=== PATIENT | female | born 1990 | race Caucasian/White ===

== ENCOUNTER 2017-01-05 21:57 | Emergency (ER) | payer OTHER ==
--- NOTE | 2017-01-05 21:58 | PDOC ---
History of Present Illness - General Chief Complaint: Migraine Headache Stated Complaint: MIGRAINE Time Seen by Provider: 01/05/17 21:58 - History of Present Illness Initial Comments: 01/05/17 22:15 This 27-year-old woman with a history of cerebral palsy, migraines, frequent UTIs, anxiety/depression presents with a one-day history of migraine headache. Patient states that headache again on the right side then became bilateral and accompanied by nausea. This pattern is consistent with her more serious migraine headaches. She became nauseated early in the course of the headache and did not take any analgesics/anti-inflammatory medications. She normally takes [id number] ibuprofen/naproxen or "doubles up" on her daily magnesium supplementation. She vomited after taking extra magnesium earlier today. Only other medication taken today was Pepto-Bismol for her nausea. Patient last vomited at approximately 8 PM (emesis was Pepto-Bismol); no coffee ground or blood noted in the emesis. Patient states that she has needed to be treated with IV pain medication/fluids in the past when she has had complicated migraines No recent head trauma/loss of consciousness. She has not had any fever/chills or neck pain. Patient states that her menstrual period is due tomorrow. Patient also parenthetically notes that her left ear is somewhat itchy and painful for the last few days. No discharge or bleeding noted. Patient states that she does use earbuds and uses Q-tips to clean clean her ears. No previous history of otitis externa Past History - Past Medical History Allergies/Adverse Reactions: Allergies Allergy/AdvReac Type Severity Reaction Status Date / Time No Known Allergies Allergy Verified 08/27/15 14:05 Home Medications: Ambulatory Orders Escitalopram Oxalate [Lexapro -] 20 mg PO DAILY 01/29/15 Levothyroxine [Synthroid -] 50 mcg PO DAILY 01/29/15 Levocetirizine Dihydrochloride [Xyzal] 5 mg PO DAILY 01/05/17 Magnesium 01/05/17 Naproxen Sodium 550 mg PO BID PRN #20 tablet 01/05/17 Neomycin/Polymyxn/Hc [Cortisporin Otic Suspenstion -] 5 drop Q4HWA #1 bottle 01/05/17 Vitamin D - 01/05/17 Anemia: No Asthma: No Cancer: No Cardiac Disorders: No CVA: No COPD: No CHF: No Dementia: No Diabetes: No GI Disorders: No Disorders: Yes (uti) HTN: No Hypercholesterolemia: No Liver Disease: No Psychiatric Problems: Yes (DEPRESSION,ANXIETY) Suicide Attempt (Hx): No Seizures: No Thyroid Disease: Yes (hypo) - Surgical History Abdominal Surgery: No Appendectomy: No Cardiac Surgery: No Cholecystectomy: No Lung Surgery: No Neurologic Surgery: Yes (rhizotomy) Orthopedic Surgery: No - Psycho/Social/Smoking Cessation Hx Anxiety: Yes Suicidal Ideation: No Smoking Status: No Smoking History: Never smoked Have you smoked in the past 12 months: No Number of Cigarettes Smoked Daily: 0 Hx Alcohol Use: No Drug/Substance Use Hx: No Substance Use Type: None Hx Substance Use Treatment: No Review of Systems - Review of Systems Able to Perform ROS?: Yes Comments:: 12 point review of systems is negative except for what is noted in the history of present illness *Physical Exam - Physical Exam Comments: GENERAL:Adult female in no acute distress, alert and oriented 3 HEAD: Normal with no signs of trauma. EYES: PERRLA, EOMI, sclera anicteric, conjunctiva clear. ENT: Right ear normal, left ear erythematous , moderately edematous canal , normal TM Remainder of the ENT exam is normal NECK: Normal range of motion, supple without lymphadenopathy, JVD, or masses. LUNGS: Breath sounds equal, clear to auscultation bilaterally. No wheezes, and no crackles. HEART:Regular rate and rhythm, normal S1 and S2 without murmur, rub or gallop. ABDOMEN:.normal bowel sounds No guarding,tenderness or rebound.No masses No distention. EXTREMITIES: Normal range of motion, no edema. No clubbing or cyanosis. No erythema, or tenderness. NEUROLOGICAL: Cranial nerves II through XII grossly intact. Normal speech no focal neurologic deficits MUSCULOSKELETAL: Back non-tender to palpation, no CVA tenderness SKIN: Warm, Dry, normal turgor, no rashes or lesions noted. Medical Decision Making - Medical Decision Making 01/05/17 23:56 Patient feels significantly better after Toradol 30 mg IV, approximately 250 mL of normal saline IV and 4 mg Zofran IV. The patient is concerned about having a recurrent headache tomorrow. Since she normally takes nonsteroidal anti-inflammatory medications for her headaches, we will prescribe naproxen 550 mg to be taken twice a day with food as needed for headache. Also, Decadron 10 mg IV will be administered as prophylaxis for rebound headache. The patient has not seen her neurologist (Dr. Talbert) in quite a while. She should follow-up with him within the next week. She should return to the ER if she has persistent severe headache or develops vomiting. A prescription for Cortisporin otic suspension to be used every 4 hours while awake for the next week 5 drops in left ear), was sent to the patient's pharmacy. She should follow-up with Dr. Tripathi (ENT group) if she has persistent discomfort /itching in the ear. *DC/Admit/Observation/Transfer Diagnosis at time of Disposition: Migraine Qualifiers: Migraine type: chronic without aura Status migrainosus presence: without status migrainosus Intractability: not intractable Qualified Code(s): G43.709 - Chronic migraine without aura, not intractable, without status migrainosus Otitis externa Qualifiers: Otitis externa type: unspecified type Chronicity: acute Laterality: left Qualified Code(s): H60.502 - Unspecified acute noninfective otitis externa, left ear - Discharge Dispostion Disposition: HOME Condition at time of disposition: Stable - Prescriptions Prescriptions: Neomycin/Polymyxn/Hc [Cortisporin Otic Suspenstion -] 5 drop Q4HWA #1 bottle Naproxen Sodium 550 mg PO BID PRN #20 tablet PRN Reason: Headache - Referrals Referrals: Arnaldo Ramirez MD [Primary Care Provider] - Andrew Tripathi MD [Staff Physician] - 1 week - Patient Instructions Additional Instructions: Naproxen 550 mg twice a day as needed for headache (take with food) Continue other medications as prescribed Cortisporin otic suspension in left ear (5 drops every 4 hours while awake for one week) Follow-up with ENT (Dr. Tripathi group) if you have continued ear discomfort Follow-up with your neurologist within the next 5-7 days Return to ER if you have severe headache or persistent vomiting
[2017-01-05 22:04] VITALS: BP 127/54; PULSE 84; TEMP 97.7; BMI 38.3
[2017-01-05] MEDS ORDERED: ONDANSETRON 4 MG/2 ML VIAL IVPUSH ONE (22:14)
[2017-01-05] MEDS ORDERED: SODIUM CHLORIDE 1,000 ML IV STA (22:14)
[2017-01-05] MEDS ORDERED: KETOROLAC TROMETHAMINE 30 MG/1 ML VIAL IVPUSH ONE (22:14)
[2017-01-05] MEDS ORDERED: KETOROLAC TROMETHAMINE 30 MG/1 ML VIAL ONE (22:19)
[2017-01-05] MEDS ORDERED: ONDANSETRON 4 MG/2 ML VIAL ONE (22:19)
[2017-01-05] MEDS ORDERED: DEXAMETHASONE SOD PHOSPHATE 10 MG/1 ML VIAL IVPB ONE (23:22)
[2017-01-05] MEDS ORDERED: DEXAMETHASONE SOD PHOSPHATE 10 MG/1 ML VIAL ONE (23:24)
== END 2017-01-05 23:56 | disposition home or self-care (01) ==
LOC: FER 21:57
PROC: 3E033GC Introduction of Other Therapeutic Substance into Peripheral Vein, Percutaneous Approach (ICD-10-PCS; principal; 2017-01-05)
PROC: 3E0333Z Introduction of Anti-inflammatory into Peripheral Vein, Percutaneous Approach (ICD-10-PCS; 2017-01-05)
PROC: 3E033GC Introduction of Other Therapeutic Substance into Peripheral Vein, Percutaneous Approach (ICD-10-PCS; 2017-01-05)
PROC: 3E0333Z Introduction of Anti-inflammatory into Peripheral Vein, Percutaneous Approach (ICD-10-PCS; 2017-01-05)
DX: H60.502 Unspecified acute noninfective otitis externa, left ear (principal); G43.709 Chronic migraine without aura, not intractable, without status migrainosus; F41.8 Other specified anxiety disorders; E03.9 Hypothyroidism, unspecified
CPT/HCPCS: 99281-25

== ENCOUNTER 2018-04-17 19:19 | Emergency (ER) | payer OTHER ==
[2018-04-17 19:25] VITALS: BP 124/84; PULSE 105; TEMP 98.3; BMI 38.3
--- NOTE | 2018-04-17 19:29 | PDOC ---
History of Present Illness - History of Present Illness Initial Comments: 04/17/18 19:42 The patient is a 28 year old female, with a significant past medical history of migraine headaches, hypothyroidism, depression/anxiety, and occasional recurrent UTIs, who presents to the emergency department with a migraine headache for 3 days. She states she took her candesartan and triptan without relief of the migraine. She states the headache travels from back to front and from left to right. She reports associated photophobia and nausea. She states she has experienced migraines like this but they do not come as frequent as her left sever headaches. The patient denies chest pain, shortness of breath, and dizziness. The patient denies fever, chills, vomit, diarrhea and constipation. The patient denies dysuria, frequency, urgency and hematuria. PAST MEDICAL HISTORY: migraine headaches, hypothyroidism, depression/anxiety, and occasional recurrent UTIs, PAST SURGICAL HISTORY: no significant history FAMILY HISTORY: no pertinent history SOCIAL HISTORY: Pt lives with family and is employed. MEDICATIONS: reviewed ALLERGIES: As per nursing notes Adult ROS General: No fevers or chills, no weakness, no weight loss HEENT: No change in vision. No sore throat,. No ear pain CardioVascular: No chest pain or shortness of breath Respiratory:No cough, or wheezing. Gastrointestinal: (+) nausea, no vomiting, diarrhea or constipation, No rectal bleeding Genitourinary: No dysuria, hematuria, or frequency Musculoskeletal: No joint or muscle pain or swelling Neurologic: (+) headache, photophobia. No vertigo, dizziness or loss of consciousness Psychiatric: nor depression Skin: No rashes or easy bruising Endocrine: no increased thirst or abnormal weight change Allergic: no skin or latex allergy All other systems reviewed and normal Basic PE GENERAL: The patient is awake, alert, and fully oriented, in no acute distress. HEAD: Normal with no signs of trauma. EYES: Pupils equal, round and reactive to light, extraocular movements intact, sclera anicteric, conjunctiva clear. EXTREMITIES: Normal range of motion, no edema. NEUROLOGICAL: Normal speech, normal gait. PSYCH: Normal mood, normal affect. SKIN: Warm, Dry, normal turgor, no rashes or lesions noted. <Ernestina Arndt - Last Filed: 04/17/18 19:42> - General History Source: Patient Exam Limitations: No Limitations - History of Present Illness Initial Comments: 04/17/18 19:30 A portion of this note was documented by scribe services under my direction. I have reviewed the details of the note, within reason, and agree with the documentation. The case summary and management plan written by me. This is a 28 year old female with history of migraines. Pt come in with a typical migraine. Pt took her usual medications without relief. Pt had a normal exam. Pt felt much better an hour after tordol and reglan and asked to go home. Pt discharged home and told to follow up with her PMD if headache returned. <Von Sim I - Last Filed: 04/17/18 20:38> - General Chief Complaint: Migraine Headache Stated Complaint: MIGRAINE HEADACHE Time Seen by Provider: 04/17/18 19:29 Past History <Ernestina Arndt - Last Filed: 04/17/18 19:42> - Past Medical History Anemia: No Asthma: No Cancer: No Cardiac Disorders: No CVA: No COPD: No CHF: No Dementia: No Diabetes: No GI Disorders: No Disorders: Yes (uti) HTN: No Hypercholesterolemia: No Liver Disease: No Psychiatric Problems: Yes (DEPRESSION,ANXIETY) Seizures: No Thyroid Disease: Yes (hypo) - Surgical History Abdominal Surgery: No Appendectomy: No Cardiac Surgery: No Cholecystectomy: No Lung Surgery: No Neurologic Surgery: Yes (rhizotomy) Orthopedic Surgery: No - Suicide/Smoking/Psychosocial Hx Smoking Status: No Smoking History: Never smoked Have you smoked in the past 12 months: No Number of Cigarettes Smoked Daily: 0 Information on smoking cessation initiated: No Hx Alcohol Use: No Drug/Substance Use Hx: No Substance Use Type: None Hx Substance Use Treatment: No <Von Sim I - Last Filed: 04/17/18 20:38> - Past Medical History Allergies/Adverse Reactions: Allergies Allergy/AdvReac Type Severity Reaction Status Date / Time No Known Allergies Allergy Verified 04/17/18 19:21 Home Medications: Ambulatory Orders Escitalopram Oxalate [Lexapro -] 20 mg PO DAILY 01/29/15 Levothyroxine [Synthroid -] 50 mcg PO DAILY 01/29/15 Levocetirizine Dihydrochloride [Xyzal] 5 mg PO DAILY 01/05/17 Magnesium 01/05/17 Naproxen Sodium 550 mg PO BID PRN #20 tablet 01/05/17 Neomycin/Polymyxn/Hc [Cortisporin Otic Suspenstion -] 5 drop Q4HWA #1 bottle 01/05/17 Vitamin D - 01/05/17 *Physical Exam - Vital Signs Last Vital Signs Temp Pulse Resp BP Pulse Ox 98.3 F 105 H 16 124/84 100 04/17/18 19:21 04/17/18 19:21 04/17/18 19:21 04/17/18 19:21 04/17/18 19:21 <Ernestina Arndt - Last Filed: 04/17/18 19:42> - Vital Signs Last Vital Signs Temp Pulse Resp BP Pulse Ox 98.3 F 105 H 16 124/84 100 04/17/18 19:21 04/17/18 19:21 04/17/18 19:21 04/17/18 19:21 04/17/18 19:21 <Von Sim I - Last Filed: 04/17/18 20:38> *DC/Admit/Observation/Transfer - Attestations Scribe Attestion: 04/17/18 19:53 Documentation prepared by Ernestina Arndt, acting as medical laboratory assistant for Von Sim MD <Ernestina Arndt - Last Filed: 04/17/18 19:42> - Discharge Dispostion Decision to Admit order: No <Von Sim I - Last Filed: 04/17/18 20:38> Diagnosis at time of Disposition: Migraine Qualifiers: Migraine type: unspecified Status migrainosus presence: without status migrainosus Intractability: not intractable Qualified Code(s): G43.909 - Migraine, unspecified, not intractable, without status migrainosus - Discharge Dispostion Disposition: HOME Condition at time of disposition: Stable - Referrals Referrals: Shannon Parker MD [Primary Care Provider] - - Patient Instructions Additional Instructions: Continue all your medications as perscribed. Follow-up with a neurologist if symptoms don't resolve over the completely over the next 48 hours. Return to the emergency department immediately with ANY new, persistent or worsening symptoms. Continue any medications as previously prescribed by your physician. You should follow up with your primary doctor as soon as possible regarding today's emergency department visit. . Please make sure your doctor reviews the results of your emergency evaluation. Thank you for coming to the Emergency Department today for your care. It was a pleasure to see you today. Please note that your evaluation is INCOMPLETE until you follow-up with your doctor. - Post Discharge Activity
[2018-04-17] MEDS ORDERED: MAG HYDROX/AL HYDROX/SIMETH -MYLANTA- ORAL SUSPENSION PO ONE (19:37)
[2018-04-17] MEDS ORDERED: KETOROLAC TROMETHAMINE 60 MG/2 ML VIAL IM ONE (19:37)
[2018-04-17] MEDS ORDERED: METOCLOPRAMIDE HCL INJECTION 10 MG/2 ML VIAL IM ONE (19:37)
[2018-04-17] MEDS ORDERED: KETOROLAC TROMETHAMINE 60 MG/2 ML VIAL ONE (19:45)
[2018-04-17] MEDS ORDERED: MAG HYDROX/AL HYDROX/SIMETH 30 ML UNIT-DOSE CUP ONE (19:45)
== END 2018-04-17 20:42 | disposition home or self-care (01) ==
LOC: FER 19:19
PROC: 3E0233Z Introduction of Anti-inflammatory into Muscle, Percutaneous Approach (ICD-10-PCS; principal; 2018-04-17)
PROC: 3E033GC Introduction of Other Therapeutic Substance into Peripheral Vein, Percutaneous Approach (ICD-10-PCS; 2018-04-17)
DX: G43.909 Migraine, unspecified, not intractable, without status migrainosus (principal); F41.8 Other specified anxiety disorders; E03.9 Hypothyroidism, unspecified
CPT/HCPCS: 96372; 99281-25

== ENCOUNTER 2018-08-31 17:55 | Emergency (ER) | payer OTHER ==
--- NOTE | 2018-08-31 18:13 | PDOC ---
History of Present Illness - General History Source: Patient, Family Exam Limitations: No Limitations - History of Present Illness Initial Comments: 08/31/18 18:42 The patient is a 28-year-old female with a past medical history significant for hx of migraine headaches, keratosis pilaris, hypothyroidism, and Cerebral Palsy presents to the emergency department with a persistent cough. The patient presents with 2 weeks of persistent cough with associated symptoms of headache, back pain, pain with coughing, trouble breathing, worse with lying down. The patient reports having urinary frequency. The patient reports following up with Dr. Rader at [facility], who prescribed cefazolin (once a day) and cough syrup, without relief. The patient reports her PCP prescribed benzonatate 100 mg, without relief. Denies sore throat. The patient states she is nonambulatory, with minimal ambulation with a cane. Allergies: NKDA Social history: None reported. Surgical history: Rhizotomy (at age 1) and muscle transfer surgery at age 2. PCP: Shannon Velazquez. <Linda Norman - Last Filed: 08/31/18 18:54> <Kyle Luna - Last Filed: 09/02/18 09:23> - General Chief Complaint: Respiratory Stated Complaint: PERSISTANT COUGH FLU SYMPTOMS Time Seen by Provider: 08/31/18 18:12 Past History <Linda Norman - Last Filed: 08/31/18 18:54> - Past Medical History Anemia: No Asthma: No Cancer: No Cardiac Disorders: No CVA: No COPD: No CHF: No Dementia: No Diabetes: No GI Disorders: No Disorders: Yes (uti) HTN: No Hypercholesterolemia: No Liver Disease: No Psychiatric Problems: Yes (DEPRESSION,ANXIETY) Seizures: No Thyroid Disease: Yes (hypo) - Surgical History Abdominal Surgery: No Appendectomy: No Cardiac Surgery: No Cholecystectomy: No Lung Surgery: No Neurologic Surgery: Yes (rhizotomy) Orthopedic Surgery: No - Suicide/Smoking/Psychosocial Hx Smoking Status: No Smoking History: Never smoked Have you smoked in the past 12 months: No Number of Cigarettes Smoked Daily: 0 Hx Alcohol Use: No Drug/Substance Use Hx: No Substance Use Type: None Hx Substance Use Treatment: No <Kyle Luna - Last Filed: 09/02/18 09:23> - Past Medical History Allergies/Adverse Reactions: Allergies Allergy/AdvReac Type Severity Reaction Status Date / Time No Known Allergies Allergy Verified 08/31/18 18:04 Home Medications: Ambulatory Orders Escitalopram Oxalate [Lexapro -] 30 mg PO DAILY 01/29/15 Levothyroxine [Synthroid -] 50 mcg PO DAILY 01/29/15 Azithromycin [Zithromax 250mg Tablets -] 250 mg PO UTDICT #6 tab 08/31/18 Candesartan Cilexetil [Atacand -] 8 mg PO DAILY 08/31/18 Guaifenesin AC [Robitussin-AC] 1 - 2 tsp PO Q4HWA PRN #120 ml MDD 6 08/31/18 Oseltamivir Phosphate [Tamiflu] 75 mg PO BID #10 capsule 08/31/18 Review of Systems - Review of Systems Able to Perform ROS?: Yes Comments:: 08/31/18 18:42 CONSTITUTIONAL: Absent: fever, chills, diaphoresis, generalized weakness, malaise, loss of appetite HEENT: Absent: rhinorrhea, nasal congestion, throat pain, throat swelling, difficulty swallowing, mouth swelling, ear pain, eye pain, visual Changes CARDIOVASCULAR: Absent: chest pain, syncope, palpitations, irregular heart rate, lightheadedness , peripheral edema RESPIRATORY: +cough. Trouble breathing with lying down. Absent: shortness of breath, dyspnea with exertion, wheezing, stridor, hemoptysis GASTROINTESTINAL: Absent: abdominal pain, abdominal distension, nausea, vomiting, diarrhea, constipation, melena, hematochezia. GENITOURINARY: +urinary frequency. Absent: dysuria, urgency, hesitancy, hematuria, flank pain, genital pain MUSCULOSKELETAL: +back pain. Absent: myalgia, arthralgia, joint swelling SKIN: Absent: rash, itching, pallor HEMATOLOGIC/IMMUNOLOGIC: Absent: easy bleeding, easy bruising, lymphadenopathy, frequent infections ENDOCRINE: Absent: unexplained weight gain, unexplained weight loss, heat intolerance, cold intolerance NEUROLOGIC: Absent: headache, focal weakness or paresthesias, dizziness, unsteady gait, seizure, mental status changes, bladder or bowel incontinence PSYCHIATRIC: Absent: anxiety, depression, suicidal or homicidal ideation, hallucinations. <Linda Norman - Last Filed: 08/31/18 18:54> *Physical Exam - Vital Signs Last Vital Signs Temp Pulse Resp BP Pulse Ox 98.3 F 99 H 24 H 107/69 98 08/31/18 17:57 08/31/18 17:57 08/31/18 17:57 08/31/18 17:57 08/31/18 17:57 - Physical Exam Comments: 08/31/18 18:51 GENERAL: Awake and Alert. Severe obese. No acute distress. HEENT: Normocephalic, atraumatic. PERRLA, EOMI. No conjunctival pallor. Sclera are non-icteric. Moist mucous membranes. Oropharynx is clear. NECK: Supple. Full ROM. No JVD. Carotid pulses 2+ and symmetric, without bruits. No thyromegaly. No lymphadenopathy. CARDIOVASCULAR: Regular rate and rhythm. No murmurs, rubs, or gallops. Distal pulses are 2+ and symmetric. PULMONARY: +intractable cough. Decreased breath sounds at the base, rales at the right base. No wheezing or rhonchi. ABDOMINAL: Soft. Non-tender. Non-distended. No rebound or guarding. No organomegaly. MUSCULOSKELETAL: No bony deformities or tenderness. No CVA tenderness. EXTREMITIES: No cyanosis. No clubbing. No edema. No calf tenderness. SKIN: +diffused keratosis pilaris. Warm and dry. Normal capillary refill. No jaundice. NEUROLOGICAL: Alert, awake, appropriate. PSYCHIATRIC: Cooperative. Good eye contact. Appropriate mood and affect. <Linda Norman - Last Filed: 08/31/18 18:54> Moderate Sedation - Procedure Monitoring Vital Signs: Procedure Monitoring Vital Signs Temperature 98.3 F 08/31/18 17:57 Pulse Rate 99 H 08/31/18 17:57 Respiratory Rate 24 H 08/31/18 17:57 Blood Pressure 107/69 08/31/18 17:57 O2 Sat by Pulse Oximetry (%) 98 08/31/18 17:57 <Linda Norman - Last Filed: 08/31/18 18:54> Medical Decision Making - Medical Decision Making 09/02/18 09:20 Patient with cerebral palsy but functional, wheelchair-bound, but alert and conversive. Intractable nonproductive cough. However, no shortness of breath. There is no tachypnea or dyspnea. O2 saturation is good Chest x-ray reveals a small right lower lobe infiltrate. No effusion. Remainder of structures are normal Since the patient has a mild disability, but no respiratory distress, and even though this is probably viral in origin, treatment for atypicals and influenza were begun. The patient was started on azithromycin and Tamiflu and advise close follow-up with primary physician 24 hours. To return to ER if there is shortness of breath. Father is present with the patient, who understands and agrees. Patient discharged in no significant respiratory distress to follow-up as directed <Kyle Luna - Last Filed: 09/02/18 09:23> *DC/Admit/Observation/Transfer - Attestations Scribe Attestion: 08/31/18 18:53 Documentation prepared by Linda Norman, acting as front office medical assistant for Kyle Luna MD. <Linda Norman - Last Filed: 08/31/18 18:54> - Discharge Dispostion Decision to Admit order: No <Kyle Luna - Last Filed: 09/02/18 09:23> Diagnosis at time of Disposition: Pneumonia Qualifiers: Pneumonia type: due to unspecified organism Laterality: right Lung location: lower lobe of lung Qualified Code(s): J18.1 - Lobar pneumonia, unspecified organism - Discharge Dispostion Disposition: HOME Condition at time of disposition: Stable - Prescriptions Prescriptions: Azithromycin [Zithromax 250mg Tablets -] 250 mg PO UTDICT #6 tab Guaifenesin AC [Robitussin-AC] 1 - 2 tsp PO Q4HWA PRN #120 ml MDD 6 PRN Reason: Cough Oseltamivir Phosphate [Tamiflu] 75 mg PO BID #10 capsule - Patient Instructions Printed Discharge Instructions: DI for Pneumonia -- Adult
[2018-08-31 18:29] VITALS: BP 107/69; PULSE 99; TEMP 98.3; BMI 38.3
== END 2018-08-31 19:11 | disposition home or self-care (01) ==
LOC: FER 17:55
DX: J18.1 Lobar pneumonia, unspecified organism (principal); G80.9 Cerebral palsy, unspecified; L85.8 Other specified epidermal thickening; F41.8 Other specified anxiety disorders
CPT/HCPCS: 71045-TC-FY; 99281-25

== ENCOUNTER 2018-09-06 12:20 | Emergency (ER) | payer OTHER ==
[2018-09-06 12:36] VITALS: BP 111/74; PULSE 89; TEMP 98.7; BMI 38.3
--- NOTE | 2018-09-06 12:46 | PDOC ---
History of Present Illness - General Chief Complaint: Respiratory Stated Complaint: REVISIT FOR COUGH & CONGESTION Time Seen by Provider: 09/06/18 12:36 History Source: Patient Exam Limitations: No Limitations - History of Present Illness Initial Comments: 09/06/18 12:43 28y F hx of migraines, keratosis pilaris, hypothyroidism, cerebral palsy presents with a persistent cough. The patient has been having a cough for approximately 3 weeks, was originally seen in urgent care, then came to our ED approx 1 week ago for the cough, had a chest x-ray showing a right lower lobe infiltrate suspicous of pna and started on Tamiflu and azithromycin. Patient states that she is feeling much better without any shortness of breath, or sputum also seem to be clearing up. However the patient notes that her cough is still present, the coughing does seem worse at night it is clear. There is no associated fever, chills, dyspnea on exertion, leg swelling, hempytisis, body aches, nasal congestion, . PMD: Dr. Naqvi Allergies: NKDA Social history: None reported. Surgical history: Rhizotomy (at age 1) and muscle transfer surgery at age 2. PCP: Shannon Velazquez. Past History - Past Medical History Allergies/Adverse Reactions: Allergies Allergy/AdvReac Type Severity Reaction Status Date / Time No Known Allergies Allergy Verified 08/31/18 18:04 Home Medications: Ambulatory Orders Escitalopram Oxalate [Lexapro -] 30 mg PO DAILY 01/29/15 Levothyroxine [Synthroid -] 50 mcg PO DAILY 01/29/15 Candesartan Cilexetil [Atacand -] 8 mg PO DAILY 08/31/18 Albuterol Sulfate [Albuterol Sulfate Hfa] 1 - 2 puff IH Q6H PRN #1 hfa.aer.ad Benzonatate [Tessalon Pearls -] 100 mg PO TID PRN 09/06/18 Cholecalciferol (Vitamin D3) [Vitamin D3] 4,000 unit PO DAILY 09/06/18 Guaifenesin AC [Robitussin AC] 1 - 2 tsp PO Q4H PRN #120 ml MDD 6 tsp 09/06/18 Anemia: No Asthma: No Cancer: No Cardiac Disorders: No CVA: No COPD: No CHF: No Dementia: No Diabetes: No GI Disorders: No Disorders: Yes (uti) HTN: No Hypercholesterolemia: No Liver Disease: No Psychiatric Problems: Yes (DEPRESSION,ANXIETY) Seizures: No Thyroid Disease: Yes (hypo) Other medical history: CEREBRAL PALSY - Surgical History Abdominal Surgery: No Appendectomy: No Cardiac Surgery: No Cholecystectomy: No Lung Surgery: No Neurologic Surgery: Yes (rhizotomy) Orthopedic Surgery: No - Suicide/Smoking/Psychosocial Hx Smoking Status: No Smoking History: Never smoked Have you smoked in the past 12 months: No Number of Cigarettes Smoked Daily: 0 Hx Alcohol Use: No Drug/Substance Use Hx: No Substance Use Type: None Hx Substance Use Treatment: No Review of Systems - Review of Systems Able to Perform ROS?: Yes Comments:: 09/06/18 13:02 Constitutional - no reported Fever, Chills, HEENT: no reported sore throat Respiratory: + cough, no reported sob, hemoptysis Cardiac: no reported chest pain, palpitations, light headedness, leg swelling Abd/GI: no reported abd pain, nausea, vomiting, Musculskelatal - no reported back pain, joint swelling skin - no reported bruising, erythema, rash neurological: no reported headache, numbness, focal weakness, tingling, ataxia, *Physical Exam - Vital Signs Last Vital Signs Temp Pulse Resp BP Pulse Ox 98.7 F 89 20 111/74 98 09/06/18 12:21 09/06/18 12:21 09/06/18 12:21 09/06/18 12:21 09/06/18 12:21 - Physical Exam Comments: 09/06/18 13:05 GENERAL: The patient is awake, alert, and fully oriented, Nontoxic - in no acute distress. ENT: Normal voice, Moist mucous membranes. NECK: Normal range of motion, supple LUNGS: Mild rhonchi at R base, otherwise clear, no acute respiratory distress, speaking complete sentences, no sensory muscle use HEART: Regular rate and rhythm, normal S1 and S2 without murmur, rub or gallop. EXTREMITIES: Normal range of motion, trace edema. No calf tenderness, negative Homans sign Moderate Sedation - Procedure Monitoring Vital Signs: Procedure Monitoring Vital Signs Temperature 98.7 F 09/06/18 12:21 Pulse Rate 89 09/06/18 12:21 Respiratory Rate 20 09/06/18 12:21 Blood Pressure 111/74 09/06/18 12:21 O2 Sat by Pulse Oximetry (%) 98 09/06/18 12:21 Medical Decision Making - Medical Decision Making 09/06/18 13:06 Suspect residual symptoms from her pneumonia. We'll give the patient an albuterol suspect her to residual cough may be due to sensitivity/reactive from her recent infection. vitals were reviewed and normal results from previous visit reviewed 09/06/18 13:30 pt feeling improved We'll discharge the patient with an albuterol inhaler will also refill the patient's prescription of robitussin AC will have pt fu with dr. ramirez as an outpatient. I discussed the physical exam findings, ancillary test results and final diagnoses with the patient. I answered all of the patient's questions. The patient was satisfied with the care received and felt comfortable with the discharge plan and treatment plan. The patient will call their primary care physician within 24 hours to arrange follow-up and will return to the Emergency Department with any new, persistent or worsening symptoms. *DC/Admit/Observation/Transfer Diagnosis at time of Disposition: Cough Pneumonia Qualifiers: Pneumonia type: due to unspecified organism Laterality: right Lung location: lower lobe of lung Qualified Code(s): J18.1 - Lobar pneumonia, unspecified organism - Discharge Dispostion Disposition: HOME Condition at time of disposition: Improved Decision to Admit order: No - Referrals Referrals: Shannon Parker MD [Primary Care Provider] - - Patient Instructions - Post Discharge Activity
[2018-09-06] MEDS ORDERED: ALBUTEROL SO4 2.5/IPRATROPIUM 0.5 INH SOL 3 ML VIAL.NEB. NEB ONE ×2 (12:54→12:59)
== END 2018-09-06 13:56 | disposition home or self-care (01) ==
LOC: FER 12:20
PROC: 3E0F7GC Introduction of Other Therapeutic Substance into Respiratory Tract, Via Natural or Artificial Opening (ICD-10-PCS; principal; 2018-09-06)
DX: J18.1 Lobar pneumonia, unspecified organism (principal); R05 Cough; E03.9 Hypothyroidism, unspecified; F41.8 Other specified anxiety disorders; G80.9 Cerebral palsy, unspecified
CPT/HCPCS: 99282-25